=== PATIENT | male | born 1950 | race Caucasian/White ===

== ENCOUNTER 2022-08-20 17:39 | Emergency (ER) | payer MEDICARE ==
[~2022-08-20] VITALS: Ht 172.7 cm; Wt 77.1 kg
[2022-08-20] MEDS ORDERED: MAXITROL 0.1 %1 SUS OS (18:10)
[2022-08-20 18:21] VITALS: BP 115/69
== END 2022-08-20 18:23 | disposition home or self-care (01) ==
LOC: ED 17:39
DX: S05.02XA Injury of conjunctiva and corneal abrasion without foreign body, left eye, initial encounter (principal); X58.XXXA Exposure to other specified factors, initial encounter; Y93.15 Activity, underwater diving and snorkeling